=== PATIENT | male | born 1930 | race Caucasian/White ===

== ENCOUNTER 2016-09-12 14:23 | Inpatient (IN) | payer MEDICARE, BC ==
[~2016-09-12] VITALS: Ht 180.3 cm; Wt 60.0 kg
[2016-09-12 18:16] VITALS: BP_SYST 144; BP_SYST 146; RESP 18; TEMP 97
[2016-09-12 18:17] VITALS: Ht 180.3 cm; Wt 60.0 kg
[2016-09-12] MEDS ORDERED: ONDANSETRON 4 MG VIAL IV PRN (18:30)
[2016-09-12] MEDS ORDERED: BISACODYL 10 MG SUPP RECTAL PRN (18:30)
[2016-09-12] MEDS ORDERED: ALU/MAG/SIM 30 ML UDC PO PRN (18:30)
[2016-09-12] MEDS ORDERED: SALINE FLUSH 10 ML FLUSH PRN (18:30)
[2016-09-12] MEDS ORDERED: ACETAMINOPHEN 325 MG TAB PO PRN (18:30)
[2016-09-12] MEDS ORDERED: MAG HYDROX 30 ML UDC PO PRN (18:30)
[2016-09-12] MEDS ORDERED: BISACODYL EC 5 MG TAB PO PRN (18:30)
[2016-09-12] MEDS ORDERED: METOPROLOL 5 MG/5 ML VIAL IV ONE (18:45)
[2016-09-12 19:00] VITALS: BP_SYST 110; RESP 16; TEMP 98.4
[2016-09-12] MEDS: SALINE FLUSH 10 ML FLUSH SCH (20:05)
[2016-09-12] MEDS: ENOXAPARIN 60 MG/0.6 ML SYR SUBQ SCH (20:06)
[2016-09-12] MEDS: METOPROLOL TART 25 MG TAB PO SCH (21:31)
[2016-09-12] MEDS ORDERED: MISSING DOSE XX ONE (23:00)
[2016-09-12] MEDS: GUAIFEN/DM 10 ML UDC PO PRN (23:07)
[2016-09-13] VITALS (7 sets, daily range): BP systolic 113–144; RESP 16–18; TEMP 97.4–98.6
[2016-09-13] MEDS: PANTOPRAZOLE 40 MG TAB PO SCH (05:34)
[2016-09-13] MEDS: SODIUM CHLORIDE 0.9% FLUSH BAG 500 ML IV SCH (05:34)
[2016-09-13] MEDS: SALINE FLUSH 10 ML FLUSH SCH ×2 (08:22→20:13)
[2016-09-13] MEDS: GUAIFEN/DM 10 ML UDC PO PRN (08:22)
[2016-09-13] MEDS: ENOXAPARIN 60 MG/0.6 ML SYR SUBQ SCH ×2 (08:23→18:51)
[2016-09-13] MEDS: LISINOPRIL 10 MG TAB PO SCH (08:23)
[2016-09-13] MEDS: METOPROLOL TART 25 MG TAB PO SCH ×3 (08:24→20:13)
[2016-09-13] MEDS: ASPIRIN 81 MG CHEW TAB PO SCH (08:24)
[2016-09-13] MEDS ORDERED: LEVOFLOXACIN 750 MG/150 ML 150 ML IV SCH (09:00)
[2016-09-13] MEDS ORDERED: OPTIRAY 350 100 ML VIAL HMH IV ONE (16:24)
[2016-09-14 04:30] VITALS: BP_SYST 144; RESP 16; TEMP 97.7
[2016-09-14] MEDS: SODIUM CHLORIDE 0.9% FLUSH BAG 500 ML IV SCH (05:26)
[2016-09-14] MEDS ORDERED: Furosemide 40 MG/4 ML VIAL IV ONE (06:00)
[2016-09-14] MEDS: PANTOPRAZOLE 40 MG TAB PO SCH (06:25)
[2016-09-14] MEDS: ENOXAPARIN 60 MG/0.6 ML SYR SUBQ SCH ×2 (06:26→18:27)
[2016-09-14] MEDS ORDERED: PHARMACY TO DOSE ZOSYN IV SCH (07:30)
[2016-09-14] MEDS ORDERED: PHARMACY TO DOSE VANCOMYCIN IV SCH (07:30)
[2016-09-14] MEDS ORDERED: VANCOMYCIN 1,250 MG in SODIUM CHLORIDE 0.9% 250 ML IV STA (07:54)
[2016-09-14 08:03] VITALS: BP_SYST 121; RESP 16; TEMP 98.4
[2016-09-14] MEDS: SALINE FLUSH 10 ML FLUSH SCH ×2 (08:31→20:21)
[2016-09-14] MEDS: LISINOPRIL 10 MG TAB PO SCH (08:32)
[2016-09-14] MEDS: METOPROLOL TART 25 MG TAB PO SCH ×3 (08:32→20:16)
[2016-09-14] MEDS: ASPIRIN 81 MG CHEW TAB PO SCH (08:32)
[2016-09-14] MEDS ORDERED: LEVOFLOXACIN 750 MG/150 ML 150 ML IV SCH (09:00)
[2016-09-14] MEDS ORDERED: Furosemide 40 MG/4 ML VIAL IV SCH (09:00)
[2016-09-14] MEDS: PIPERACIL/TAZO 3.375GM/50ML 50 ML IV SCH ×4 (10:08→23:29)
[2016-09-14 12:21] VITALS: BP_SYST 118; RESP 16; TEMP 98.6
[2016-09-14 16:24] VITALS: BP_SYST 122; RESP 16; TEMP 98.1
[2016-09-14] MEDS: Furosemide 40 MG/4 ML VIAL IV SCH (16:41)
[2016-09-14 19:21] VITALS: BP_SYST 104; RESP 18; TEMP 97.7
[2016-09-14] MEDS: VANCOMYCIN 1,000 MG in SODIUM CHLORIDE 0.9% 250 ML IV SCH (20:21)
[2016-09-14 23:10] VITALS: BP_SYST 120; RESP 18; TEMP 98.3
[2016-09-14] MEDS ORDERED: MISSING DOSE XX ONE (23:35)
[2016-09-15] MEDS: GUAIFEN/DM 10 ML UDC PO PRN (00:01)
[2016-09-15 04:37] VITALS: BP_SYST 108; RESP 18; TEMP 98.3
[2016-09-15] MEDS: PIPERACIL/TAZO 3.375GM/50ML 50 ML IV SCH ×4 (06:22→23:39)
[2016-09-15] MEDS: SODIUM CHLORIDE 0.9% FLUSH BAG 500 ML IV SCH (06:22)
[2016-09-15] MEDS: ENOXAPARIN 60 MG/0.6 ML SYR SUBQ SCH ×2 (06:23→18:35)
[2016-09-15 07:43] VITALS: BP_SYST 143; RESP 16; TEMP 99.4
[2016-09-15] MEDS: VANCOMYCIN 1,000 MG in SODIUM CHLORIDE 0.9% 250 ML IV SCH ×2 (08:18→20:10)
[2016-09-15] MEDS: SALINE FLUSH 10 ML FLUSH SCH ×2 (08:18→20:09)
[2016-09-15] MEDS: Furosemide 40 MG/4 ML VIAL IV SCH ×3 (08:19→16:12)
[2016-09-15] MEDS: LISINOPRIL 10 MG TAB PO SCH (08:19)
[2016-09-15] MEDS: PANTOPRAZOLE 40 MG TAB PO SCH (08:19)
[2016-09-15] MEDS: METOPROLOL TART 25 MG TAB PO SCH ×3 (08:19→20:10)
[2016-09-15] MEDS: ASPIRIN 81 MG CHEW TAB PO SCH (08:19)
[2016-09-15] MEDS ORDERED: KCL CR 20 MEQ TAB PO ONE (08:25)
[2016-09-15 12:27] VITALS: BP_SYST 104; RESP 16; TEMP 97.3
[2016-09-15 16:13] VITALS: BP_SYST 123; RESP 16; TEMP 98.4
[2016-09-15 19:15] VITALS: BP_SYST 111; RESP 16; TEMP 98.3
[2016-09-15] MEDS ORDERED: KCL CR 20 MEQ TAB PO SCH (21:00)
[2016-09-15 23:32] VITALS: BP_SYST 116; RESP 16; TEMP 98.4
[2016-09-16] MEDS: Furosemide 40 MG/4 ML VIAL IV SCH ×3 (01:06→17:56)
[2016-09-16 03:12] VITALS: BP_SYST 116; RESP 16; TEMP 98
[2016-09-16] MEDS: PIPERACIL/TAZO 3.375GM/50ML 50 ML IV SCH ×4 (06:16→23:26)
[2016-09-16] MEDS: SODIUM CHLORIDE 0.9% FLUSH BAG 500 ML IV SCH (06:16)
[2016-09-16] MEDS: PANTOPRAZOLE 40 MG TAB PO SCH (06:16)
[2016-09-16] MEDS: ENOXAPARIN 60 MG/0.6 ML SYR SUBQ SCH ×2 (06:17→17:59)
[2016-09-16 08:18] VITALS: BP_SYST 109; RESP 16; TEMP 97.8
[2016-09-16] MEDS: VANCOMYCIN 1,000 MG in SODIUM CHLORIDE 0.9% 250 ML IV SCH (09:00)
[2016-09-16] MEDS: METOPROLOL TART 25 MG TAB PO SCH ×3 (09:01→21:07)
[2016-09-16] MEDS: LISINOPRIL 10 MG TAB PO SCH (09:01)
[2016-09-16] MEDS: ASPIRIN 81 MG CHEW TAB PO SCH (09:01)
[2016-09-16] MEDS: SALINE FLUSH 10 ML FLUSH SCH ×2 (09:42→20:00)
[2016-09-16] MEDS: KCL CR 20 MEQ TAB PO SCH ×2 (09:42→21:08)
[2016-09-16 11:44] VITALS: BP_SYST 113; RESP 20; TEMP 98.2
[2016-09-16 15:38] VITALS: BP_SYST 91; RESP 20; TEMP 97.9
[2016-09-16 19:00] VITALS: BP_SYST 136; RESP 18; TEMP 98.3
[2016-09-16] MEDS: VANCOMYCIN 1,250 MG in SODIUM CHLORIDE 0.9% 250 ML IV SCH (19:45)
[2016-09-17] VITALS (8 sets, daily range): BP systolic 83–130; RESP 18–24; TEMP 97.6–98.2
[2016-09-17] MEDS: Furosemide 40 MG/4 ML VIAL IV SCH ×3 (00:31→17:13)
[2016-09-17] MEDS: PIPERACIL/TAZO 3.375GM/50ML 50 ML IV SCH ×4 (05:37→23:38)
[2016-09-17] MEDS: SODIUM CHLORIDE 0.9% FLUSH BAG 500 ML IV SCH (05:37)
[2016-09-17] MEDS: PANTOPRAZOLE 40 MG TAB PO SCH (06:06)
[2016-09-17] MEDS: ENOXAPARIN 60 MG/0.6 ML SYR SUBQ SCH (06:07)
[2016-09-17] MEDS: SALINE FLUSH 10 ML FLUSH SCH ×2 (07:59→20:00)
[2016-09-17] MEDS: VANCOMYCIN 1,250 MG in SODIUM CHLORIDE 0.9% 250 ML IV SCH ×2 (08:00→20:13)
[2016-09-17] MEDS: KCL CR 20 MEQ TAB PO SCH ×2 (08:00→21:08)
[2016-09-17] MEDS: ASPIRIN 81 MG CHEW TAB PO SCH ×2 (08:01→21:07)
[2016-09-17] MEDS: LISINOPRIL 10 MG TAB PO SCH (08:01)
[2016-09-17] MEDS: METOPROLOL TART 25 MG TAB PO SCH ×2 (08:01→21:08)
[2016-09-17] MEDS: GUAIFEN/DM 10 ML UDC PO PRN ×2 (08:09→17:14)
[2016-09-17] MEDS ORDERED: MISSING DOSE XX ONE ×2 (08:40→11:30)
[2016-09-17] MEDS: LACTOBACILLUS ACIDOPH CAP PO SCH ×2 (11:20→21:08)
[2016-09-17] MEDS: SPIRONOLACTONE 25 MG TAB PO SCH (11:20)
[2016-09-17] MEDS: FERROUS SULF 325 MG TAB PO SCH ×2 (11:20→21:08)
[2016-09-17] MEDS: Ascorbic Acid 500 MG TAB PO SCH ×2 (11:20→21:08)
[2016-09-17] MEDS: TAMSULOSIN 0.4 MG CAP PO SCH (21:08)
[2016-09-17] MEDS ORDERED: DILTIAZEM 60 MG TAB PO ONE (22:00)
[2016-09-18] VITALS (45 sets, daily range): BP systolic 95–130; RESP 18–40; TEMP 97.5–98.9
[2016-09-18] MEDS: Furosemide 40 MG/4 ML VIAL IV SCH ×3 (00:32→18:28)
[2016-09-18] MEDS: PIPERACIL/TAZO 3.375GM/50ML 50 ML IV SCH ×3 (05:16→18:28)
[2016-09-18] MEDS: SODIUM CHLORIDE 0.9% FLUSH BAG 500 ML IV SCH (05:17)
[2016-09-18] MEDS: SALINE FLUSH 10 ML FLUSH SCH ×2 (07:48→20:09)
[2016-09-18] MEDS: PANTOPRAZOLE 40 MG TAB PO SCH (07:58)
[2016-09-18] MEDS: VANCOMYCIN 1,250 MG in SODIUM CHLORIDE 0.9% 250 ML IV SCH ×2 (08:30→19:37)
[2016-09-18] MEDS: ENOXAPARIN 40 MG/0.4 ML SYR SUBQ SCH (08:31)
[2016-09-18] MEDS: LACTOBACILLUS ACIDOPH CAP PO SCH ×2 (08:31→21:00)
[2016-09-18] MEDS: METOPROLOL TART 25 MG TAB PO SCH ×2 (08:31→21:00)
[2016-09-18] MEDS: KCL CR 20 MEQ TAB PO SCH ×2 (08:32→21:00)
[2016-09-18] MEDS: FERROUS SULF 325 MG TAB PO SCH ×2 (08:32→21:00)
[2016-09-18] MEDS: LISINOPRIL 10 MG TAB PO SCH (08:32)
[2016-09-18] MEDS: Ascorbic Acid 500 MG TAB PO SCH ×2 (08:32→21:00)
[2016-09-18] MEDS: SPIRONOLACTONE 25 MG TAB PO SCH (08:32)
[2016-09-18] MEDS: NEB-ALBUTEROL 2.5 MG/3 ML INH PRN ×5 (10:34→22:50)
[2016-09-18] MEDS: DILTIAZEM CD 180 MG CAP PO SCH (11:32)
[2016-09-18] MEDS ORDERED: METOLAZONE 5 MG TAB PO ONE (14:25)
[2016-09-18] MEDS: METOLAZONE 5 MG TAB PO SCH (16:05)
[2016-09-18] MEDS: TAMSULOSIN 0.4 MG CAP PO SCH (21:00)
[2016-09-19] VITALS (52 sets, daily range): BP systolic 84–137; RESP 20–44; TEMP 97.9–99
[2016-09-19] MEDS: Furosemide 40 MG/4 ML VIAL IV SCH ×3 (01:00→16:40)
[2016-09-19] MEDS: NEB-ALBUTEROL 2.5 MG/3 ML INH PRN (02:17)
[2016-09-19] MEDS: SODIUM CHLORIDE 0.9% FLUSH BAG 500 ML IV SCH (06:41)
[2016-09-19] MEDS: PIPERACIL/TAZO 3.375GM/50ML 50 ML IV SCH ×2 (06:44)
[2016-09-19] MEDS: PANTOPRAZOLE 40 MG TAB PO SCH (06:44)
[2016-09-19] MEDS: METOLAZONE 5 MG TAB PO SCH (07:55)
[2016-09-19] MEDS: LACTOBACILLUS ACIDOPH CAP PO SCH ×2 (07:55→19:37)
[2016-09-19] MEDS: TAMSULOSIN 0.4 MG CAP PO SCH (07:56)
[2016-09-19] MEDS: DILTIAZEM CD 180 MG CAP PO SCH (07:56)
[2016-09-19] MEDS: ASPIRIN 81 MG CHEW TAB PO SCH (07:56)
[2016-09-19] MEDS: FERROUS SULF 325 MG TAB PO SCH ×2 (07:56→19:35)
[2016-09-19] MEDS: SPIRONOLACTONE 25 MG TAB PO SCH (07:56)
[2016-09-19] MEDS: METOPROLOL TART 25 MG TAB PO SCH ×2 (07:57→19:34)
[2016-09-19] MEDS: KCL CR 20 MEQ TAB PO SCH (07:57)
[2016-09-19] MEDS: Ascorbic Acid 500 MG TAB PO SCH ×2 (07:57→19:35)
[2016-09-19] MEDS: LISINOPRIL 10 MG TAB PO SCH (07:58)
[2016-09-19] MEDS: ENOXAPARIN 40 MG/0.4 ML SYR SUBQ SCH (07:58)
[2016-09-19] MEDS: SALINE FLUSH 10 ML FLUSH SCH ×2 (08:00→19:34)
[2016-09-19] MEDS: VANCOMYCIN 1,250 MG in SODIUM CHLORIDE 0.9% 250 ML IV SCH (08:00)
[2016-09-19] MEDS ORDERED: APIXABAN 5 MG TAB PO ONE (09:51)
[2016-09-19] MEDS: APIXABAN 5 MG TAB PO SCH ×2 (14:23→19:35)
[2016-09-19] MEDS: METHYLPRED SOD SUCC 125 MG/2 ML VIAL IV SCH ×3 (14:23→19:35)
[2016-09-19] MEDS ORDERED: MISSING DOSE XX ONE (20:20)
[2016-09-20] VITALS (28 sets, daily range): BP systolic 87–139; RESP 21–37; TEMP 97.6–98
[2016-09-20] MEDS: Furosemide 40 MG/4 ML VIAL IV SCH ×2 (01:00→17:43)
[2016-09-20] MEDS: SODIUM CHLORIDE 0.9% FLUSH BAG 500 ML IV SCH (05:11)
[2016-09-20] MEDS: PANTOPRAZOLE 40 MG TAB PO SCH (06:18)
[2016-09-20] MEDS: METHYLPRED SOD SUCC 125 MG/2 ML VIAL IV SCH (06:18)
[2016-09-20] MEDS: ASPIRIN 81 MG CHEW TAB PO SCH (08:04)
[2016-09-20] MEDS: LACTOBACILLUS ACIDOPH CAP PO SCH ×2 (08:05→20:37)
[2016-09-20] MEDS: METOPROLOL TART 25 MG TAB PO SCH ×2 (08:05→20:38)
[2016-09-20] MEDS: LISINOPRIL 10 MG TAB PO SCH (08:05)
[2016-09-20] MEDS: Ascorbic Acid 500 MG TAB PO SCH ×2 (08:06→20:38)
[2016-09-20] MEDS: DILTIAZEM CD 180 MG CAP PO SCH (08:06)
[2016-09-20] MEDS: FERROUS SULF 325 MG TAB PO SCH ×2 (08:06→20:38)
[2016-09-20] MEDS: APIXABAN 5 MG TAB PO SCH ×2 (08:06→20:38)
[2016-09-20] MEDS: SALINE FLUSH 10 ML FLUSH SCH ×2 (08:06→20:37)
[2016-09-20] MEDS: METHYLPRED SOD SUCC 40 MG VIAL IV SCH ×2 (08:45→20:37)
[2016-09-20] MEDS: SPIRONOLACTONE 25 MG TAB PO SCH (09:00)
[2016-09-20] MEDS: ACETAMINOPHEN 325 MG TAB PO SCH ×2 (11:57→17:43)
[2016-09-20] MEDS: TRAZODONE 50 MG TAB PO SCH (20:37)
[2016-09-20] MEDS: HALOPERIDOL 0.5 MG TAB PO PRN (20:38)
[2016-09-20] MEDS: TAMSULOSIN 0.4 MG CAP PO SCH (20:39)
[2016-09-21] VITALS (26 sets, daily range): BP systolic 80–139; RESP 21–37; TEMP 98.1–99.4
[2016-09-21] MEDS: ACETAMINOPHEN 325 MG TAB PO SCH ×3 (02:30→16:07)
[2016-09-21] MEDS: Furosemide 40 MG/4 ML VIAL IV SCH (05:00)
[2016-09-21] MEDS: SODIUM CHLORIDE 0.9% FLUSH BAG 500 ML IV SCH (06:05)
[2016-09-21] MEDS: PANTOPRAZOLE 40 MG TAB PO SCH (06:06)
[2016-09-21] MEDS: SPIRONOLACTONE 25 MG TAB PO SCH (07:20)
[2016-09-21] MEDS: LACTOBACILLUS ACIDOPH CAP PO SCH ×2 (07:20→21:36)
[2016-09-21] MEDS: METOPROLOL TART 25 MG TAB PO SCH ×2 (07:20→21:36)
[2016-09-21] MEDS: METHYLPRED SOD SUCC 40 MG VIAL IV SCH (07:20)
[2016-09-21] MEDS: ASPIRIN 81 MG CHEW TAB PO SCH (07:21)
[2016-09-21] MEDS: APIXABAN 5 MG TAB PO SCH (07:21)
[2016-09-21] MEDS: FERROUS SULF 325 MG TAB PO SCH ×2 (07:21→21:36)
[2016-09-21] MEDS: DILTIAZEM CD 180 MG CAP PO SCH (07:21)
[2016-09-21] MEDS: Ascorbic Acid 500 MG TAB PO SCH ×2 (07:21→21:36)
[2016-09-21] MEDS: SALINE FLUSH 10 ML FLUSH SCH ×2 (07:21→20:13)
[2016-09-21] MEDS ORDERED: KCL CR 20 MEQ TAB PO ONE (07:45)
[2016-09-21] MEDS: KCL CR 20 MEQ TAB PO SCH ×2 (11:27→21:36)
[2016-09-21] MEDS ORDERED: MISSING DOSE XX ONE (17:25)
[2016-09-21] MEDS: TAMSULOSIN 0.4 MG CAP PO SCH (21:36)
[2016-09-21] MEDS: HALOPERIDOL 0.5 MG TAB PO PRN (21:36)
[2016-09-21] MEDS: TRAZODONE 50 MG TAB PO SCH (21:46)
[2016-09-22] VITALS (25 sets, daily range): BP systolic 93–132; RESP 15–36; TEMP 97.5–99.1
[2016-09-22] MEDS: ACETAMINOPHEN 325 MG TAB PO SCH ×3 (02:30→18:47)
[2016-09-22] MEDS: SODIUM CHLORIDE 0.9% FLUSH BAG 500 ML IV SCH (06:09)
[2016-09-22] MEDS: PANTOPRAZOLE 40 MG TAB PO SCH (06:09)
[2016-09-22] MEDS: SALINE FLUSH 10 ML FLUSH SCH ×2 (08:43→21:16)
[2016-09-22] MEDS: APIXABAN 2.5 MG TAB PO SCH ×2 (08:44→21:16)
[2016-09-22] MEDS: Ascorbic Acid 500 MG TAB PO SCH ×2 (08:44→21:16)
[2016-09-22] MEDS: LACTOBACILLUS ACIDOPH CAP PO SCH ×2 (08:44→21:16)
[2016-09-22] MEDS: METOPROLOL TART 25 MG TAB PO SCH ×2 (08:44→21:16)
[2016-09-22] MEDS: DILTIAZEM CD 180 MG CAP PO SCH (08:44)
[2016-09-22] MEDS: FERROUS SULF 325 MG TAB PO SCH ×2 (08:44→21:16)
[2016-09-22] MEDS ORDERED: METHYLPRED SOD SUCC 40 MG VIAL IV SCH (09:00)
[2016-09-22] MEDS ORDERED: MISSING DOSE XX ONE (09:40)
[2016-09-22] MEDS ORDERED: PHARMACY TO DOSE IV SCH ×2 (09:45)
[2016-09-22] MEDS ORDERED: VANCOMYCIN 1,000 MG in SODIUM CHLORIDE 0.9% 250 ML IV ONE (10:00)
[2016-09-22] MEDS: ASPIRIN 81 MG CHEW TAB PO SCH (10:48)
[2016-09-22] MEDS: TRAZODONE 50 MG TAB PO SCH (21:16)
[2016-09-22] MEDS: TAMSULOSIN 0.4 MG CAP PO SCH (21:16)
[2016-09-23] VITALS (24 sets, daily range): BP systolic 95–132; RESP 18–31; TEMP 97.5–98
[2016-09-23] MEDS: ACETAMINOPHEN 325 MG TAB PO SCH ×3 (02:30→18:30)
[2016-09-23] MEDS: PANTOPRAZOLE 40 MG TAB PO SCH (06:36)
[2016-09-23] MEDS: SODIUM CHLORIDE 0.9% FLUSH BAG 500 ML IV SCH (06:37)
[2016-09-23] MEDS: APIXABAN 2.5 MG TAB PO SCH (07:25)
[2016-09-23] MEDS: Ascorbic Acid 500 MG TAB PO SCH ×2 (07:25→21:49)
[2016-09-23] MEDS: LACTOBACILLUS ACIDOPH CAP PO SCH ×2 (07:25→21:49)
[2016-09-23] MEDS: ASPIRIN 81 MG CHEW TAB PO SCH (07:25)
[2016-09-23] MEDS: DILTIAZEM CD 180 MG CAP PO SCH (07:26)
[2016-09-23] MEDS: METOPROLOL TART 25 MG TAB PO SCH ×2 (07:26→21:50)
[2016-09-23] MEDS: FERROUS SULF 325 MG TAB PO SCH ×2 (07:26→21:50)
[2016-09-23] MEDS: SALINE FLUSH 10 ML FLUSH SCH ×2 (07:26→20:00)
[2016-09-23] MEDS ORDERED: VANCOMYCIN 750 MG in SODIUM CHLORIDE 0.9% 250 ML IV ONE (07:40)
[2016-09-23] MEDS ORDERED: Furosemide 40 MG/4 ML VIAL IV ONE (12:50)
[2016-09-23] MEDS: TAMSULOSIN 0.4 MG CAP PO SCH (21:49)
[2016-09-23] MEDS: TRAZODONE 50 MG TAB PO SCH (21:50)
[2016-09-24] VITALS (24 sets, daily range): BP systolic 98–151; RESP 19–35; TEMP 97.6–98.2
[2016-09-24] MEDS: ACETAMINOPHEN 325 MG TAB PO SCH ×2 (02:30→12:31)
[2016-09-24] MEDS: SODIUM CHLORIDE 0.9% FLUSH BAG 500 ML IV SCH (05:31)
[2016-09-24] MEDS: PANTOPRAZOLE 40 MG TAB PO SCH (08:00)
[2016-09-24] MEDS: SALINE FLUSH 10 ML FLUSH SCH ×2 (08:00→20:00)
[2016-09-24] MEDS: LACTOBACILLUS ACIDOPH CAP PO SCH ×2 (11:29→20:36)
[2016-09-24] MEDS: Ascorbic Acid 500 MG TAB PO SCH ×2 (11:29→20:36)
[2016-09-24] MEDS: FERROUS SULF 325 MG TAB PO SCH ×2 (11:29→20:36)
[2016-09-24] MEDS: ASPIRIN 81 MG CHEW TAB PO SCH (11:29)
[2016-09-24] MEDS: DILTIAZEM CD 180 MG CAP PO SCH (11:29)
[2016-09-24] MEDS: METOPROLOL TART 25 MG TAB PO SCH ×2 (11:29→20:36)
[2016-09-24] MEDS ORDERED: Furosemide 20 MG/2 ML VIAL IV ONE (11:30)
[2016-09-24] MEDS: VANCOMYCIN 750 MG in SODIUM CHLORIDE 0.9% 250 ML IV SCH (12:19)
[2016-09-24] MEDS: ACETAMINOPHEN 500 MG TAB PO SCH ×2 (12:22→18:38)
[2016-09-24] MEDS ORDERED: PHARMACY TO DOSE IV SCH (15:15)
[2016-09-24] MEDS: TRAZODONE 50 MG TAB PO SCH (20:36)
[2016-09-24] MEDS: TAMSULOSIN 0.4 MG CAP PO SCH (20:36)
[2016-09-25] VITALS (24 sets, daily range): BP systolic 81–162; RESP 17–37; TEMP 97.9–98.2
[2016-09-25] MEDS: ACETAMINOPHEN 500 MG TAB PO SCH ×3 (03:15→21:08)
[2016-09-25] MEDS: SODIUM CHLORIDE 0.9% FLUSH BAG 500 ML IV SCH (05:22)
[2016-09-25] MEDS: PANTOPRAZOLE 40 MG TAB PO SCH (05:36)
[2016-09-25] MEDS: SALINE FLUSH 10 ML FLUSH SCH ×2 (08:14→20:00)
[2016-09-25] MEDS: METOPROLOL TART 25 MG TAB PO SCH ×2 (08:15→21:09)
[2016-09-25] MEDS: DILTIAZEM CD 180 MG CAP PO SCH (08:15)
[2016-09-25] MEDS: ASPIRIN 81 MG CHEW TAB PO SCH (08:15)
[2016-09-25] MEDS: FERROUS SULF 325 MG TAB PO SCH ×2 (08:15→21:09)
[2016-09-25] MEDS: LACTOBACILLUS ACIDOPH CAP PO SCH ×2 (08:15→21:09)
[2016-09-25] MEDS: Ascorbic Acid 500 MG TAB PO SCH ×2 (08:15→21:10)
[2016-09-25] MEDS: VANCOMYCIN 750 MG in SODIUM CHLORIDE 0.9% 250 ML IV SCH (13:21)
[2016-09-25] MEDS: TRAZODONE 50 MG TAB PO SCH (21:09)
[2016-09-25] MEDS: TAMSULOSIN 0.4 MG CAP PO SCH (21:09)
[2016-09-26] VITALS (24 sets, daily range): BP systolic 87–131; RESP 14–28; TEMP 97.7–98.1
[2016-09-26] MEDS: ACETAMINOPHEN 500 MG TAB PO SCH ×3 (03:35→20:23)
[2016-09-26] MEDS: SODIUM CHLORIDE 0.9% FLUSH BAG 500 ML IV SCH (05:59)
[2016-09-26] MEDS: PANTOPRAZOLE 40 MG TAB PO SCH (05:59)
[2016-09-26] MEDS: DILTIAZEM CD 180 MG CAP PO SCH (07:46)
[2016-09-26] MEDS: SALINE FLUSH 10 ML FLUSH SCH ×2 (07:46→20:21)
[2016-09-26] MEDS: METOPROLOL TART 25 MG TAB PO SCH ×2 (07:46→20:21)
[2016-09-26] MEDS: Ascorbic Acid 500 MG TAB PO SCH ×2 (07:46→20:21)
[2016-09-26] MEDS: LACTOBACILLUS ACIDOPH CAP PO SCH ×2 (07:46→20:21)
[2016-09-26] MEDS: FERROUS SULF 325 MG TAB PO SCH ×2 (07:47→20:21)
[2016-09-26] MEDS: ASPIRIN 81 MG CHEW TAB PO SCH (07:47)
[2016-09-26] MEDS ORDERED: Furosemide 40 MG TAB PO ONE (09:50)
[2016-09-26] MEDS: VANCOMYCIN 750 MG in SODIUM CHLORIDE 0.9% 250 ML IV SCH (12:18)
[2016-09-26] MEDS ORDERED: VANCOMYCIN 1,000 MG in SODIUM CHLORIDE 0.9% 250 ML IV SCH (12:35)
[2016-09-26] MEDS ORDERED: OPTIRAY 350 100 ML VIAL HMH IV ONE (15:17)
[2016-09-26] MEDS: NEB-ALBUTEROL 2.5 MG/3 ML INH PRN (19:27)
[2016-09-26] MEDS: TAMSULOSIN 0.4 MG CAP PO SCH (20:21)
[2016-09-26] MEDS: TRAZODONE 50 MG TAB PO SCH (20:22)
[2016-09-27] VITALS (24 sets, daily range): BP systolic 92–147; RESP 18–34; TEMP 97.7–98.1
[2016-09-27] MEDS: ACETAMINOPHEN 500 MG TAB PO SCH ×3 (03:15→17:40)
[2016-09-27] MEDS: NEB-ALBUTEROL 2.5 MG/3 ML INH PRN (05:26)
[2016-09-27] MEDS: PANTOPRAZOLE 40 MG TAB PO SCH (05:52)
[2016-09-27] MEDS: SODIUM CHLORIDE 0.9% FLUSH BAG 500 ML IV SCH (05:52)
[2016-09-27] MEDS ORDERED: POTASSIUM PHOSPHATE 15 MMOL in SODIUM CHLORIDE 0.9% 250 ML IV ONE (07:45)
[2016-09-27] MEDS: VANCOMYCIN 1,000 MG in SODIUM CHLORIDE 0.9% 250 ML IV SCH (08:17)
[2016-09-27] MEDS: METOPROLOL TART 25 MG TAB PO SCH ×2 (08:18→19:54)
[2016-09-27] MEDS: Ascorbic Acid 500 MG TAB PO SCH ×2 (08:19→19:54)
[2016-09-27] MEDS: SALINE FLUSH 10 ML FLUSH SCH ×2 (08:19→19:30)
[2016-09-27] MEDS: LACTOBACILLUS ACIDOPH CAP PO SCH ×2 (08:19→19:54)
[2016-09-27] MEDS: ASPIRIN 81 MG CHEW TAB PO SCH (08:19)
[2016-09-27] MEDS: DILTIAZEM CD 180 MG CAP PO SCH (08:19)
[2016-09-27] MEDS: FERROUS SULF 325 MG TAB PO SCH ×2 (08:19→19:54)
[2016-09-27] MEDS ORDERED: Furosemide 40 MG TAB PO ONE (09:20)
[2016-09-27] MEDS ORDERED: MISSING DOSE XX ONE (12:40)
[2016-09-27] MEDS: Furosemide 20 MG/2 ML VIAL IV SCH (17:39)
[2016-09-27] MEDS: TAMSULOSIN 0.4 MG CAP PO SCH (19:54)
[2016-09-27] MEDS: TRAZODONE 50 MG TAB PO SCH (19:54)
[2016-09-28] VITALS (24 sets, daily range): BP systolic 86–147; RESP 18–42; TEMP 97.2–98.1
[2016-09-28] MEDS: ACETAMINOPHEN 500 MG TAB PO SCH ×3 (03:13→19:15)
[2016-09-28] MEDS: SODIUM CHLORIDE 0.9% FLUSH BAG 500 ML IV SCH (05:52)
[2016-09-28] MEDS: PANTOPRAZOLE 40 MG TAB PO SCH (08:45)
[2016-09-28] MEDS: Furosemide 20 MG/2 ML VIAL IV SCH ×2 (08:46→17:34)
[2016-09-28] MEDS: ASPIRIN 81 MG CHEW TAB PO SCH (08:46)
[2016-09-28] MEDS: VANCOMYCIN 1,000 MG in SODIUM CHLORIDE 0.9% 250 ML IV SCH (08:46)
[2016-09-28] MEDS: SALINE FLUSH 10 ML FLUSH SCH ×2 (08:46→20:00)
[2016-09-28] MEDS: METOPROLOL TART 25 MG TAB PO SCH ×2 (08:46→21:09)
[2016-09-28] MEDS: LACTOBACILLUS ACIDOPH CAP PO SCH ×2 (08:46→21:09)
[2016-09-28] MEDS: Ascorbic Acid 500 MG TAB PO SCH ×2 (08:47→21:09)
[2016-09-28] MEDS: DILTIAZEM CD 180 MG CAP PO SCH (08:47)
[2016-09-28] MEDS: FERROUS SULF 325 MG TAB PO SCH ×2 (08:47→21:09)
[2016-09-28] MEDS: NEB-ALBUTEROL 2.5 MG/3 ML INH SCH ×4 (10:11→22:51)
[2016-09-28] MEDS: APIXABAN 2.5 MG TAB PO SCH ×2 (11:45→21:10)
[2016-09-28] MEDS: PREDNISONE 20 MG TAB PO SCH (11:45)
[2016-09-28] MEDS ORDERED: MISSING DOSE XX ONE (20:50)
[2016-09-28] MEDS: TAMSULOSIN 0.4 MG CAP PO SCH (21:09)
[2016-09-28] MEDS: TRAZODONE 50 MG TAB PO SCH (21:10)
[2016-09-29] VITALS (24 sets, daily range): BP systolic 93–145; RESP 19–30; TEMP 97.3–98
[2016-09-29] MEDS: ACETAMINOPHEN 500 MG TAB PO SCH ×3 (03:15→20:04)
[2016-09-29] MEDS: SODIUM CHLORIDE 0.9% FLUSH BAG 500 ML IV SCH (05:09)
[2016-09-29] MEDS: NEB-ALBUTEROL 2.5 MG/3 ML INH SCH ×5 (06:53→23:32)
[2016-09-29] MEDS: PANTOPRAZOLE 40 MG TAB PO SCH (08:34)
[2016-09-29] MEDS: Furosemide 20 MG/2 ML VIAL IV SCH (08:35)
[2016-09-29] MEDS: SALINE FLUSH 10 ML FLUSH SCH ×2 (08:35→19:58)
[2016-09-29] MEDS: ASPIRIN 81 MG CHEW TAB PO SCH (08:35)
[2016-09-29] MEDS: DILTIAZEM CD 180 MG CAP PO SCH (08:35)
[2016-09-29] MEDS: LACTOBACILLUS ACIDOPH CAP PO SCH (08:35)
[2016-09-29] MEDS: FERROUS SULF 325 MG TAB PO SCH (08:36)
[2016-09-29] MEDS: Ascorbic Acid 500 MG TAB PO SCH ×2 (08:36→20:04)
[2016-09-29] MEDS: APIXABAN 2.5 MG TAB PO SCH ×2 (08:36→20:04)
[2016-09-29] MEDS: METOPROLOL TART 25 MG TAB PO SCH ×2 (08:36→20:04)
[2016-09-29] MEDS: PREDNISONE 20 MG TAB PO SCH (08:37)
[2016-09-29] MEDS ORDERED: GLYCOPYRROLATE 0.2 MG/ML VIAL IV PRN (11:25)
[2016-09-29] MEDS ORDERED: LORAZEPAM 0.5 MG TAB PO PRN (11:25)
[2016-09-29] MEDS ORDERED: ATROPINE 1% OP SOLN SL PRN (11:25)
[2016-09-29] MEDS ORDERED: ZOLPIDEM 5 MG TAB PO PRN (11:25)
[2016-09-29] MEDS ORDERED: LORAZEPAM 2 MG/ML VIAL IV PRN (11:25)
[2016-09-29] MEDS ORDERED: HALOPERIDOL 5 MG/ML VIAL SUBQ PRN (11:25)
[2016-09-29] MEDS ORDERED: DILAUDID 1 MG/ML AMP IV PRN (11:25)
[2016-09-29] MEDS ORDERED: HALOPERIDOL 5 MG/ML VIAL IV PRN (11:25)
[2016-09-29] MEDS: MORPHINE 2 MG/ML SYR IV PRN (11:48)
[2016-09-29] MEDS: Furosemide 20 MG TAB PO SCH (17:39)
[2016-09-29] MEDS: TAMSULOSIN 0.4 MG CAP PO SCH (20:04)
[2016-09-29] MEDS: TRAZODONE 50 MG TAB PO SCH (20:04)
[2016-09-30] VITALS (8 sets, daily range): BP systolic 113–142; RESP 16–28; TEMP 97.2–98.3
[2016-09-30] MEDS: ACETAMINOPHEN 500 MG TAB PO SCH ×2 (03:36→11:15)
[2016-09-30] MEDS: SODIUM CHLORIDE 0.9% FLUSH BAG 500 ML IV SCH (06:00)
[2016-09-30] MEDS: NEB-ALBUTEROL 2.5 MG/3 ML INH SCH ×5 (07:26→23:40)
[2016-09-30] MEDS: PANTOPRAZOLE 40 MG TAB PO SCH (07:41)
[2016-09-30] MEDS: ASPIRIN 81 MG CHEW TAB PO SCH (08:26)
[2016-09-30] MEDS: SALINE FLUSH 10 ML FLUSH SCH ×2 (08:26→21:46)
[2016-09-30] MEDS: PREDNISONE 20 MG TAB PO SCH (08:28)
[2016-09-30] MEDS: METOPROLOL TART 25 MG TAB PO SCH ×2 (08:29→21:45)
[2016-09-30] MEDS: DILTIAZEM CD 180 MG CAP PO SCH (08:29)
[2016-09-30] MEDS: APIXABAN 2.5 MG TAB PO SCH ×2 (08:29→21:45)
[2016-09-30] MEDS: Furosemide 20 MG TAB PO SCH ×2 (08:29→17:27)
[2016-09-30] MEDS: Ascorbic Acid 500 MG TAB PO SCH (08:29)
[2016-09-30] MEDS: MORPHINE 2 MG/ML SYR IV PRN ×2 (11:30→14:19)
[2016-09-30] MEDS ORDERED: HALOPERIDOL 0.5 MG TAB SL PRN (16:00)
[2016-09-30] MEDS ORDERED: PROCHLORPERAZINE 5 MG TAB PO PRN (16:05)
[2016-09-30] MEDS: TAMSULOSIN 0.4 MG CAP PO SCH (21:45)
[2016-09-30] MEDS: LORAZEPAM 0.5 MG TAB PO PRN (22:02)
[2016-10-01] MEDS: MORPHINE 20 MG/ML CONC. PO PRN ×6 (00:48→18:20)
[2016-10-01 03:21] VITALS: BP_SYST 117; RESP 22; TEMP 97.7
[2016-10-01] MEDS: SODIUM CHLORIDE 0.9% FLUSH BAG 500 ML IV SCH (06:00)
[2016-10-01] MEDS: PANTOPRAZOLE 40 MG TAB PO SCH (06:26)
[2016-10-01] MEDS: LORAZEPAM 0.5 MG TAB PO PRN ×2 (06:42→21:30)
[2016-10-01 07:17] VITALS: BP_SYST 120; RESP 24; TEMP 97.4
[2016-10-01] MEDS: SALINE FLUSH 10 ML FLUSH SCH (08:00)
[2016-10-01] MEDS: NEB-ALBUTEROL 2.5 MG/3 ML INH SCH ×4 (08:37→20:12)
[2016-10-01] MEDS: DILTIAZEM CD 180 MG CAP PO SCH (08:38)
[2016-10-01] MEDS: APIXABAN 2.5 MG TAB PO SCH (08:39)
[2016-10-01] MEDS: Furosemide 20 MG TAB PO SCH ×2 (08:41→17:00)
[2016-10-01] MEDS: PREDNISONE 20 MG TAB PO SCH (08:41)
[2016-10-01] MEDS: METOPROLOL TART 25 MG TAB PO SCH (08:41)
[2016-10-01 11:15] VITALS: BP_SYST 99; RESP 28; TEMP 97.3
[2016-10-01 15:57] VITALS: BP_SYST 112; RESP 20; TEMP 97.5
[2016-10-01 17:34] VITALS: BP_SYST 114; RESP 24; TEMP 97.4
[2016-10-01 17:37] VITALS: BP_SYST 114; RESP 24; TEMP 97.4
== END 2016-10-01 21:52 | DRG 291 ==
LOC: ENRESERVDT → ENRESERVTM → ENPENDDIS 16:45 → PCU 16:45 → ICU 09-18 11:45 → 4NT 09-29 21:01
PROVIDERS: ADMIT Internal Medicine; ATTEND Internal Medicine
DX: I11.0 Hypertensive heart disease with heart failure (principal); J96.01 Acute respiratory failure with hypoxia; J18.9 Pneumonia, unspecified organism; J90 Pleural effusion, not elsewhere classified; R64 Cachexia; N17.9 Acute kidney failure, unspecified; Z68.1 Body mass index [BMI] 19.9 or less, adult; I50.33 Acute on chronic diastolic (congestive) heart failure; I48.91 Unspecified atrial fibrillation; D64.9 Anemia, unspecified; F17.200 Nicotine dependence, unspecified, uncomplicated; E87.6 Hypokalemia; Z51.5 Encounter for palliative care
CPT/HCPCS: 36600; 71010; 71020; 71260; 76604; 80048; 80053; 80069; 80202; 82040; 82150; 82550; 82553; 82607; 82746; 82803; 82945; 83540; 83605; 83615; 83735; 83880; 83986; 84100; 84132; 84145; 84155; 84466; 84484; 85025; 85379; 85610; 87040; 87071; 87102; 87116; 87205; 87206; 87278; 87299; 87804; 89051; 93005; 93306; 94640; 94660; 94762; 94799; 99223; 99232; 99233; 99239; 99291